=== PATIENT | female | born 1940 | race Two or more races ===

== ENCOUNTER → 2021-04-10 | Outpatient (CLI) | payer MEDICARE ==
--- NOTE | 2021-04-13 16:37 | BD ---
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 Height: 64.4 Weight: 192 FRAX RISK QUESTIONS: NOTHING TO ANSWER HERE RISK FACTORS HISTORY OF: Family History of Osteoporosis: ONLY AN UNCLE ON MATERNAL SIDE Diet low in dairy products/other sources of calcium: YES Postmenopausal woman: YES, AT ABOUT AGE 52 YRS OLD Lost more than 2 inches in height since high school: YES Hyperparathyroidism: NO Adrenal Insufficiency: NO MEDICATIONS: Additional Medications: STATIN FOR CHOLESTEROL, BP MEDS, CALCIUM AND VIT D, AND MULTIPLE VITAMINS Additional History: CHOLESTEROL, HYPERTENSION, EXAM MEASUREMENTS: Bone mineral densitometry was performed using the [employer] System. Bone mineral density as measured about the Lumbar spine is: ----- L1-L4(G/cm2): 1.091 T Score Values are as follows: ----- L1: -0.9 ----- L2: -1.2 ----- L3: -0.6 ----- L4: -0.5 ----- L1-L4: -0.7 Bone mineral density THIS IS PTS FIRST DEXA SCAN....BASELINE STUDY Bone mineral density about the R hip (g/cm2): 0.890 Bone mineral density about the L hip (g/cm2): 0.776 T Score values are as follows: -----R Neck: -1.5 -----L Neck: -2.1 -----R Total: -0.9 -----L Total: -1.8 Bone mineral density FIRST BONE DENSITY SCAN......BASELINE STUDY FRAX%S: THERE IS A 15.1% CHANCE FOR A MAJOR OSTEOPOROTIC FX AND A 4.4% FOR HIP......PROBABILITY FO R FX IN 10 YRS TIME IMPRESSION: Osteopenia (T Score between -2.5 and -1). There is slightly increased risk of fracture and the patient may be considered for treatment. Re-Screen 2-5 years. NOTE: T-SCORE=SD OF THE YOUNG ADULT MEAN.
== END | disposition home or self-care (01) ==
LOC: RADBDWWP 08:12
PROVIDERS: ATTEND Internal Medicine Geriatric Medicine
DX: Z13.820 Encounter for screening for osteoporosis (principal); M85.89 Other specified disorders of bone density and structure, multiple sites
CPT/HCPCS: 77080

== ENCOUNTER → 2023-12-02 | Outpatient (CLI) | payer MEDICARE ==
--- NOTE | 2023-12-02 18:26 | BD ---
EXAMINATION TYPE: Axial Bone Density DATE OF EXAM: 12/02/2023 CLINICAL HISTORY: 83 years old Female. ICD-10 CODE: M81.0 AGE RELATED OSTEO Height: 64.7 in Weight: 191 lbs EXAM MEASUREMENTS: Bone mineral densitometry was performed using the [employer] System. Bone mineral density as measured about the Lumbar spine is: ----- L1-L4(G/cm2): 1.076 T Score Values are as follows: ----- L1: -1.3 ----- L2: -1.3 ----- L3: -0.8 ----- L4: -0.4 ----- L1-L4: -0.9 Z Score Values are as follows: ----- L1: -0.2 ----- L2: -0.1 ----- L3: 0.3 ----- L4: 0.7 ----- L1-L4: 0.3 Bone mineral density has: Decreased -1.4% since study of: 04/10/2021 Bone mineral density about the R hip (g/cm2): 0.842 Bone mineral density about the L hip (g/cm2): 0.766 T Score values are as follows: -----R Neck: -1.7 -----L Neck: -2.0 -----R Total: -1.3 -----L Total: -1.9 Z Score values are as follows: -----R Neck: 0.0 -----L Neck: -0.3 -----R Total: 0.2 -----L Total: -0.4 Bone mineral density has: Decreased -3.5% since study of: 04/10/2021 FRAX%s: The graph provided illustrates a 15.2% chance for a major osteoporotic fx and a 4.5% chance f or the hips probability for fx in 10 years time. IMPRESSION: Osteopenia (T Score between -2.5 and -1). There is slightly increased risk of fracture and the patient may be considered for treatment. Re-Screen 2-5 years. NOTE: T-SCORE=SD OF THE YOUNG ADULT MEAN.
--- NOTE | 2023-12-05 09:23 | MM ---
Reason for Exam: Screening (asymptomatic). Last mammogram was performed 5 year(s) and 0 month(s) ago. Patient History: Menarche at age 14. First Full-Term at age 23. Postmenopausal. Patient has history of breast feeding. Risk Values: Gypsy 5 year model risk: 1.4%. NCI Lifetime model risk: 2.1%. Prior Study Comparison: 09/25/2018 Bilateral MG 3D screening mammo w/cad, Unknown. 11/16/2018 Bilateral MG 3D screening mammo w/cad, Unknown. Tissue Density: The breast tissue is heterogeneously dense. This may lower the sensitivity of mammography. Findings: Analyzed By CAD. There is no suspicious group of microcalcifications or new suspicious mass in either breast. Overall Assessment: Benign, BI-RAD 2 Management: Screening Mammogram of both breasts in 1 year. . Patient should continue monthly self-breast exams. A clinical breast exam by your physician is recommended on an annual basis. This exam should not preclude additional follow-up of suspicious palpable abnormalities. Note on Gypsy scores and lifetime risk: 1. A Gypsy score greater than 3% is considered moderate risk. If this is the case, consider specialist referral to assess eligibility for a risk reducing agent. 2. If overall lifetime risk for the development of breast cancer is 20% or higher, the patient may qualify for future screening with alternating mammogram and breast MRI. Electronically signed and approved by: Tiago Cano M.D. [facility]
== END | disposition home or self-care (01) ==
LOC: RADMAMWWP 08:11
PROVIDERS: ATTEND Internal Medicine Geriatric Medicine
DX: Z12.31 Encounter for screening mammogram for malignant neoplasm of breast (principal); M81.0 Age-related osteoporosis without current pathological fracture; Z78.0 Asymptomatic menopausal state; M85.89 Other specified disorders of bone density and structure, multiple sites
CPT/HCPCS: 77063; 77067; 77080